=== PATIENT | female | born 1995 | race Caucasian/White ===

== ENCOUNTER 2020-07-10 17:01 | Emergency (ER) | payer BC, MEDICAID ==
[~2020-07-10 17:01] MED LIST: DULO60EC PO; [UNRECOGNIZED DRUG - CODE] PO
--- NOTE | 2020-07-10 19:00 | NUR ---
Patient discharged with v/s stable. Written and verbal after care instructions given and explained. Patient alert, oriented and verbalized understanding of instructions. Ambulatory with steady gait. All questions addressed prior to discharge. ID band removed. Patient advised to follow up with PMD. Rx of Ibuprofen 600mg given. Patient educated on indication of medication including possible reaction and side effects. Opportunity to ask questions provided and answered.
== END 2020-07-10 18:10 | disposition home or self-care (01) ==
LOC: MED 17:01
DX: M25.562 Pain in left knee (principal); Z79.899 Other long term (current) drug therapy; Z88.5 Allergy status to narcotic agent; Z88.1 Allergy status to other antibiotic agents
CPT/HCPCS: 93971; 99284